=== PATIENT | male | born 1950 | race Caucasian/White ===

== ENCOUNTER 2017-11-06 22:05 | Emergency (ER) | payer MEDICARE ==
[~2017-11-06] VITALS: Ht 170.2 cm; Wt 103.2 kg
[~2017-11-06 22:05] MED LIST: KETO10DR13 LEFTEYE
[2017-11-06 22:15] VITALS: BP 163/104
== END 2017-11-07 01:03 | disposition home or self-care (01) ==
LOC: ER 22:05
DX: M25.571 Pain in right ankle and joints of right foot (principal); E78.00 Pure hypercholesterolemia, unspecified; E11.9 Type 2 diabetes mellitus without complications; I10 Essential (primary) hypertension; Z88.0 Allergy status to penicillin
CPT/HCPCS: 73610; 93971; 99284

== ENCOUNTER 2018-01-23 04:05 | Outpatient (CLI) | payer MEDICARE | END 2018-01-23 23:59 | disposition home or self-care (01) | LOC: DIABETIC 04:05 | PROVIDERS: ATTEND Internal Medicine | DX: E11.9 Type 2 diabetes mellitus without complications (principal) | CPT/HCPCS: G0108 ==

== ENCOUNTER 2018-02-28 02:04 | Outpatient (CLI) | payer MEDICARE | END 2018-02-28 23:59 | disposition home or self-care (01) | LOC: DIABETIC 02:04 | PROVIDERS: ATTEND Internal Medicine | DX: E11.9 Type 2 diabetes mellitus without complications (principal); J45.909 Unspecified asthma, uncomplicated; Z79.899 Other long term (current) drug therapy; Z88.0 Allergy status to penicillin | CPT/HCPCS: G0108 ==

== ENCOUNTER 2018-03-23 05:15 | Day surgery (SDC) | payer MEDICARE ==
[2018-03-20 15:31] LABS: BASOPHILS % (AUTO) 0.5 % (0-1); EOSINOPHILS # (AUTO) 0.3 X10'3 (0-0.9); EOSINOPHILS % (AUTO) 3.4 % (0-6); LYMPHOCYTES # (AUTO) 1.5 X10'3 (1.1-4.8); LYMPHOCYTES % (AUTO) 17.2 % (21-51); MEAN CORPUSCULAR HEMOGLOBIN 29.2 PG (27.0-31.0); MEAN CORPUSCULAR HGB CONC 34.1 % (33.0-36.5); MEAN CORPUSCULAR VOLUME 85.7 FL (78-98); MEAN PLATELET VOLUME 7.5 FL (7.4-10.4); MONOCYTES # (AUTO) 0.7 X10'3 (0-0.9); MONOCYTES % (AUTO) 8.2 % (2-12); NEUTROPHILS % (AUTO) 70.7 % (42-75); PRE OP HEMATOCRIT 42.3 % (42.0-52.0); PRE OP HEMOGLOBIN 14.4 g/dL (14.0-17.9); PRE OP PLATELET COUNT 221 X10'3 (140-440); RED BLOOD COUNT 4.94 X10'6 (4.70-6.10); RED CELL DISTRIBUTION WIDTH 14.5 % (11.5-14.5)
[2018-03-20 15:47] LABS: ALBUMIN 3.7 G/DL (3.4-5.0); ALBUMIN/GLOBULIN RATIO 0.9 (1.1-1.5); ALKALINE PHOSPHATASE 55 IU/L (46-116); BLOOD UREA NITROGEN 22 MG/DL (7-18); BUN/CREATININE RATIO 18.3 (5.4-32.0); CALCIUM 9.5 MG/DL (8.5-10.1); CHLORIDE 100 MMOL/L (99-107); PRE OP ALT 40 U/L (30-65); PRE OP ANION GAP 9 (8-16); PRE OP AST 34 U/L (10-37); PRE OP BILIRUB, TOTAL 0.5 MG/DL (0.0-1.0); PRE OP GLUCOSE 80 MG/DL (70-104); PRE OP SODIUM 136 MMOL/L (135-145); TOTAL CARBON DIOXIDE 26.7 MMOL/L (24-32); TOTAL PROTEIN 7.7 G/DL (6.4-8.2); eGFR 60 ML/MIN
[2018-03-20 15:50] LABS: PRE OP POTASSIUM 4.5 MMOL/L (3.4-5.1)
[2018-03-23] VITALS (8 sets, daily range): BP systolic 115–150; BP diastolic 43–87
[~2018-03-23] VITALS: Ht 170.2 cm; Wt 122.0 kg
[~2018-03-23 05:15] MED LIST changes: +ALBU2.5V12 NEB; +ALBU8.5H8 INH; +ALPR0.5T8 PO; +CYCL-1 PO; +FLO0.4C PO; +FLUT16SP2 BOTHNARES; +GABA300C PO; +HUM10VIA; +IPRA3AMP9 IH; -KETO10DR13 LEFTEYE; +MELO15TA13 PO; +METF500T PO; +MULT-1085 PO; +NYSPWD TP; +OMEG-166 PO; +ZOLP10TA5 PO; +ringers solution, lacted 1,000 ML IV SCH
[2018-03-23] MEDS ORDERED: clindamycin 600mg/D5W 50ml 50 ML IV ONE (05:30)
[2018-03-23] MEDS ORDERED: albuterol 2.5 MG/3 ML nebule NEB ONE (05:30)
[2018-03-23] MEDS ORDERED: famotidine 20mg tablet PO ONE (05:30)
[2018-03-23] MEDS ORDERED: LIDOcaine 1% (10mg/ml) 2ml vial ONE (05:50)
[2018-03-23] MEDS ORDERED: BUPIVAcaine/PF 2.5mg/ml (0.25%) 10ml vial ONE ×2 (06:43→09:04)
[2018-03-23] MEDS ORDERED: LIDOcaine 0.5% (5mg/ml) 50ml vial ONE (07:28)
[2018-03-23] MEDS ORDERED: fentaNYL/PF 50MCG/1 ML 2ML syringe ONE (07:31)
[2018-03-23] MEDS ORDERED: midazolam 2 mg/2 ml injection ONE (07:33)
[2018-03-23] MEDS ORDERED: ringers solution, lacted 1,000 ML IV SCH (07:58)
[2018-03-23] MEDS ORDERED: morphine 4 MG/ML inj SYRINge IV PRN ×2 (08:00)
[2018-03-23] MEDS ORDERED: ondansetron/PF 4mg/2ml inj IV PRN (08:00)
[2018-03-23] MEDS ORDERED: proCHLORperazine 10 MG/2 ml inj IV PRN (08:00)
[2018-03-23] MEDS ORDERED: meperidine/PF 25mg/ml syringe IV PRN ×3 (08:00)
[2018-03-23] MEDS ORDERED: BUPIVAcaine/PF 2.5mg/ml (0.25%) 10ml vial IJ ONE (08:48)
== END 2018-03-23 09:15 | disposition home or self-care (01) ==
LOC: PAS 05:15
PROVIDERS: ATTEND Orthopaedic Surgery Hand Surgery
DX: G56.01 Carpal tunnel syndrome, right upper limb (principal); M65.331 Trigger finger, right middle finger; E11.9 Type 2 diabetes mellitus without complications; I44.4 Left anterior fascicular block; F32.9 Major depressive disorder, single episode, unspecified; F41.8 Other specified anxiety disorders; I10 Essential (primary) hypertension; G47.33 Obstructive sleep apnea (adult) (pediatric); J45.998 Other asthma; E66.01 Morbid (severe) obesity due to excess calories; Z79.4 Long term (current) use of insulin; Z79.84 Long term (current) use of oral hypoglycemic drugs; Z92.21 Personal history of antineoplastic chemotherapy; Z79.891 Long term (current) use of opiate analgesic; Z68.41 Body mass index [BMI] 40.0-44.9, adult; Z88.0 Allergy status to penicillin; Z90.49 Acquired absence of other specified parts of digestive tract; Z85.46 Personal history of malignant neoplasm of prostate; Z92.3 Personal history of irradiation; Z90.89 Acquired absence of other organs; Z79.899 Other long term (current) drug therapy; Z98.890 Other specified postprocedural states
CPT/HCPCS: 26055; 29848; 36415; 80053; 82948; 85025; 93005; A6449; J2001; J2250; J3010; J3490; J7070; J7120; A7000

== ENCOUNTER 2018-06-27 00:58 | Outpatient (CLI) | payer MEDICARE ==
[~2018-06-27 00:58] MED LIST changes: -ringers solution, lacted 1,000 ML IV SCH
== END 2018-06-27 23:59 | disposition home or self-care (01) ==
LOC: DIABETIC 00:58
PROVIDERS: ATTEND Internal Medicine
DX: E11.9 Type 2 diabetes mellitus without complications (principal)